=== PATIENT | female | born 1995 | race Caucasian/White ===

== ENCOUNTER 2016-08-01 02:40 | Emergency (ER) | payer OTHER ==
[~2016-08-01] VITALS: Ht 170.2 cm; Wt 101.2 kg
[2016-08-01 02:47] VITALS: BP 115/71
--- NOTE | 2016-08-01 04:51 | ED DYSPNEA/ASTHMA COMPLAINT ---
History of Present Illness General Chief Complaint: Wheezing/Asthma Stated Complaint: "DIFF.BREATHING/WHEEZING X1HR,SPO2 98% HX ASTHMA" Source: patient Exam Limitations: no limitations Vital Signs & Intake/Output Vital Signs & Intake/Output Vital Signs Date Time Temp Pulse Resp B/P B/P Pulse O2 O2 Flow FiO2 Mean Ox Delivery Rate 08/01 246 96.5 83 16 115/71 99 Room Air Room Air Allergies Coded Allergies: No Known Allergies (08/01/16) Triage Note: 21YO FEMALE TO TRIAGE W/CO "ASTHMA ATTACK" AND USED HER INHALER W/OUT RELIEF SLIGHT EXP WHEEZES PRESENT. RA SAT = 99 Triage Nurses Notes Reviewed? yes : No Patient currently breastfeeds: No HPI: 08/01/2016 4:35:11 AM no in room. Past History Travel History Traveled to [place] past 21 day No Medical History Any Pertinent Medical History? see below for history Respiratory: asthma Surgical History Surgical History: unobtainable Psychosocial History What is your primary language Occitan Tobacco Use: Never used Family History Hx Contributory? No (not obtained) Review of Systems Review of Systems Constitutional: Reports: see HPI (not obtained). Physical Exam Physical Exam Respiratory: not performed Core Measures ACS in differential dx? No (unable to determine) Severe Sepsis Present: No (unable to determine) Septic Shock Present: No (unable to determine) Progress Differential Diagnosis: none Plan of Care: none Initial ED EKG: none Departure Departure Disposition: ER WALKOUT Condition: Stable Clinical Impression Primary Impression: Dyspnea Qualifiers: Dyspnea type: unspecified Qualified Code: R06.00 - Dyspnea, unspecified Referrals: PATIENT HAS NO PRIMARY CARE DR (PCP/Family) Departure Forms: Customer Survey General Discharge Information Critical Care Note Critical Care Note Critical Care Time: non-applicable
== END 2016-08-01 04:45 | disposition admitted as inpatient to this hospital (09) ==
LOC: ERH 02:40
DX: R06.2 Wheezing (principal); Z53.21 Procedure and treatment not carried out due to patient leaving prior to being seen by health care provider